=== PATIENT | male | born 1965 | race Caucasian/White ===

== ENCOUNTER 2020-09-22 08:34 | Inpatient (IN) | payer BC ==
[~2020-09-22] VITALS: Ht 175.3 cm; Wt 95.0 kg
[2020-10-14] VITALS (12 sets, daily range): BP systolic 107–119; BP diastolic 66–84; PULSE 69–107; TEMP 97.9
--- NOTE | 2020-10-14 05:15 | NUR ---
The patient's COVID test that was obtained yesterday (10/13/20) resulted as positive. Jorden, warehouse forklift operator, was called and she is going to notify the appropriate parties and let the nurse know how to proceed.
--- NOTE | 2020-10-14 05:30 | NUR ---
Dr. Sotomayor was called to notify him of the patient's positive COVID test. The patient was positive for COVID in May of 2020 and symptomatic at that time. He verbalized understanding and wants to proceed with surgery as scheduled.
--- NOTE | 2020-10-14 05:45 | NUR ---
The patient was screened for COVID upon admission and responded no to all questions regarding potential exposures and experiencing any symtpoms of COVID at this time. It was okayed by BAN Pierre that the patient's can be at his bedside during this admission.
[2020-10-14] MEDS ORDERED: PRINIVIL40 MG PO (06:03)
[2020-10-14] MEDS ORDERED: HCTZ 25MG TAB25 MG PO (06:04)
[2020-10-14] MEDS ORDERED: ZYLOPRIM 300MG300 MG PO (06:04)
[2020-10-14] MEDS ORDERED: MOBIC15 MG PO (06:05)
--- NOTE | 2020-10-14 06:45 | NUR ---
The patient ambulated back to the PACU Isolation [place] and appeared to tolerate the activity well. Vital signs obtained. Consent signed. 18G IV started in right hand with one stick, LR infusing without difficulty. Blood obtained from IV start for type and screen as ordered. Heart Reg. Lungs clear. Bowel sounds audible. Call light is within reach. at bedside. The patient denies any further needs at this time. Will continue to monitor the patient.
[2020-10-14] MEDS ORDERED: NORCO 325 MG-51 TAB PO (10:49)
[2020-10-14] MEDS ORDERED: COLACE 100100 MG/CAP PO (10:49)
[2020-10-14 11:34] LABS: BASO % 0.4 % (0.0-2.0); EOS % 0.2 % (0-4.0); GRAN # 8.8 (1.4-6.5); GRAN % 85.7 % (42.2-75.2); HEMATOCRIT 44.1 % (42.0-52.0); LYMPH # 0.9 (1.2-3.4); LYMPH % 9.2 % (20.0-51.0); MEAN CELL VOLUME 93 fl (80.0-100.0); MEAN CORPUSCULAR HEMOGLOBIN 32 pg (27.0-31.0); MEAN CORPUSCULAR HGB CONC 34 g/dl (33.0-37.0); MEAN PLATELET VOLUME 10.1 fl (7.4-10.4); MONO # 0.4 (0.1-0.6); MONO % 3.9 % (1.7-9.3); PLATELET COUNT 209 K/mm3 (130-400); RED BLOOD COUNT 4.72 M/mm3 (4.20-5.60); REDCELL DISTRIBUTION WIDTH-CV 13.6 % (11.5-14.5)
[2020-10-14 11:45] LABS: CALCIUM 9.2 mg/dL (8.4-10.2); CREATININE, serum 1.62 (0.66-1.25); POTASSIUM 4.1 mmol/L (3.4-5.0)
--- NOTE | 2020-10-14 14:30 | NUR ---
Patient arrived to room from PACU via bed. Patient is drowsy but rouses easily, is alert and oriented while awake. Hernandez in place per order, a small amount of yellow urine with sediment in it. YA drain to R abdomen with a small amount of bloody drainage in it. Patient reports pain is well controlled at this time. Post op checks initiated. Patient remains on 3L O2, SpO2 remians in low/mid 90's. at bedside. Patient is tolerating water well, given jello, will advance as tolerated. Denies further needs at this time, call light within reach.
--- NOTE | 2020-10-14 18:50 | NUR ---
Patient resting in bed at this time. Post op checks completed. Hernandez continues to drain cloudy yellow urine. IV bolus completed, IVF continue to infuse per order. Drain in place with a small amount of bloody drainage in bulb. Patient denies further needs, call light within reach.
[2020-10-15 00:23] VITALS: BP 111/62; PULSE 101; TEMP 98.4
--- NOTE | 2020-10-15 01:06 | NUR ---
2345 - PATIENT RESTING WELL - URINE OUTPUT LIGHT YELLOW W/ 1000ML TO SILVA. PATIENT TOLERATED P.O. CLEARS AND IVF WAS TRANSITIONED TO INT IV ACCESS SITE.
--- NOTE | 2020-10-15 01:12 | NUR ---
PATIENT SURGICAL SITE C;EAM DRY INTACT - 6 PUNCTURE WOUNDS CLOSED WITH GLUE, NO REDNESS OR TENERNESS NOTED. DRESSING FOR YA DRAIN CLEAN, INTACT
[2020-10-15 04:48] VITALS: BP 120/64; PULSE 81; TEMP 97.8
--- NOTE | 2020-10-15 06:04 | NUR ---
PATIENT SLEPT SOUNDLY MOST OF NIGHT. URINE OUTPUT GOOD; YA DRAIN AT 90ML TOTAL FOR SHIFT. ABDOMINAL INCISIONS CLEAR DRY AND INTACT; EDGES WELL APPROXIMATED WITH GLUE SEALING ADHESIVE. YA DRAIN DRESSING, DRY AND INTACT WITH NO SHADOWING NOTED. PATIENT HAS REFUSED ANY PAIN MEDICATION AND STATES HIS PAIN IS "OK".NO QUESTIONS OR NEEDS VOICED THIS MORNING.
--- NOTE | 2020-10-15 07:00 | NUR ---
Report received OLVIN Lainez. pT in bed resting with eyes closed, awakens easily, denies needs, will continue to monitor.
[2020-10-15 07:24] VITALS: BP 127/83; PULSE 79; TEMP 97.8
--- NOTE | 2020-10-15 07:54 | NUR ---
Assessment charted. Pt donig well, does have some muscle spasms that take his breath away but otherwise at rest denies pain. Gave Tyelenol and gabapentin for pain. Removed hawkins catheter per Dr. Starr and urinal provided. Pt tolerated well. 6 lap sites to abd are well approximated and MIGNON. YA drain site occlusive and no shadowing or drainage present. SS drainage to bulb suction. Pt educated on ERAS protocol and IS usage. Will try and titrate off 1L NC today. Will continue to monitor.
[2020-10-15 10:50] LABS: BASO % 0.3 % (0.0-2.0); EOS % 0.2 % (0-4.0); GRAN # 9.3 (1.4-6.5); GRAN % 77.1 % (42.2-75.2); HEMATOCRIT 43.9 % (42.0-52.0); HEMOGLOBIN 14.6 g/dl (13.5-18.0); LYMPH # 1.8 (1.2-3.4); LYMPH % 14.8 % (20.0-51.0); MEAN CELL VOLUME 95 fl (80.0-100.0); MEAN CORPUSCULAR HEMOGLOBIN 32 pg (27.0-31.0); MEAN CORPUSCULAR HGB CONC 33 g/dl (33.0-37.0); MEAN PLATELET VOLUME 9.9 fl (7.4-10.4); MONO # 0.9 (0.1-0.6); MONO % 7.3 % (1.7-9.3); PLATELET COUNT 203 K/mm3 (130-400); REDCELL DISTRIBUTION WIDTH-CV 14.2 % (11.5-14.5)
--- NOTE | 2020-10-15 10:56 | NUR ---
The patient is on contact precautions due to Covid-19 positive. [employer] attempted to contact the patient via room phone, no answer. [employer] contacted the patient's , Frances #[phone] to complete intake. Frances is in the room. The patient was up in the room walking which is why he did not answer. The patient is no longer on oxygen. The patient lives in [place] with Frances. The patient has a cane and walker available if needed. The patient is independent with ADLs. The patient's PCP is Dr. Orlin Espinosa and patient receives medications from [facility] in [place]. The patient does not have advanced directives but Frances was interested in DPOA-HC forms. Forms provided. The plan is for the patient to return home at discharge with Frances providing transporation. *Discharge disposition* Home with Frances
[2020-10-15 11:02] VITALS: BP 130/76; PULSE 80; TEMP 98
[2020-10-15 11:07] LABS: CALCIUM 9.9 mg/dL (8.4-10.2); CREATININE, serum 1.9 (0.66-1.25); POTASSIUM 4.3 mmol/L (3.4-5.0)
--- NOTE | 2020-10-15 13:45 | NUR ---
VM left with Evalicja regarding update on patient.
--- NOTE | 2020-10-15 16:31 | NUR ---
Discharge teaching completed at [facility]. Pt requested take home packe of [facility] d/t living 2+ hours away and staying at [facility], called Ro and received order and checked it out to patient. INT dc'd, tip intact. Pt has no bleeding from YA drain site. Reviewed packet in detail, pt recieved information. PT left with all belongings, escorted him out acting as "clean personnel". to drive to [facility] for tongt. PT did have phone conversation with Dr. Starr on hospital phone regarding pathology report. Criteria met.
== END 2020-10-15 16:33 | disposition home or self-care (01) | DRG 661 ==
LOC: INPTSU 10-14 05:11 → SURG 10-14 07:30 → MEDICAL 10-14 13:30
PROVIDERS: ADMIT Urology
PROC: 8E0W4CZ Robotic Assisted Procedure of Trunk Region, Percutaneous Endoscopic Approach (ICD-10-PCS; 2020-10-14)
PROC: 0TB04ZZ Excision of Right Kidney, Percutaneous Endoscopic Approach (ICD-10-PCS; principal; 2020-10-14 07:30)
DX: N28.89 Other specified disorders of kidney and ureter (principal); F41.9 Anxiety disorder, unspecified; J44.9 Chronic obstructive pulmonary disease, unspecified; I10 Essential (primary) hypertension; M19.90 Unspecified osteoarthritis, unspecified site; M10.9 Gout, unspecified; Z20.822 Contact with and (suspected) exposure to COVID-19; Z90.49 Acquired absence of other specified parts of digestive tract
CPT/HCPCS: A4314; A9284; J0690; J2250; J2704; J3010; J7120